=== PATIENT | male | born 1965 | race Caucasian/White ===

== ENCOUNTER 2022-05-13 05:47 | Emergency (ER) | payer BC ==
[~2022-05-13] VITALS: Ht 20.3 cm; Wt 138.6 kg
[2022-05-13] MEDS ORDERED: CITALOPRAM HBR10 MG PO (06:08)
[2022-05-13] MEDS ORDERED: LIPITOR 10M10 MG/TAB PO (06:09)
[2022-05-13] MEDS ORDERED: OZEMPIC0.25 MG/0. SQ (06:10)
[2022-05-13] MEDS ORDERED: GLUCOPHAGE PO (06:10)
[2022-05-13] MEDS ORDERED: FLOMAX0.4 MG PO (06:11)
[2022-05-13 06:38] LABS: BASO # 0.03 K/mm3 (0.02-0.10); EOS # 0.17 K/mm3 (0.04-0.40); EOS % 2.6 % (0.0-4.0); HEMATOCRIT 42.1 % (42.0-52.0); LYMPH# 1.36 K/mm3 (1.50-4.00); MEAN CELL VOLUME 88 fl (78-100); MEAN CORPUSCULAR HEMOGLOBIN 29 pg (27-31); MEAN CORPUSCULAR HGB CONC 33 g/dL (33-37); MEAN PLATELET VOLUME 9.4 fl (7.4-10.4); MONO # 0.49 K/mm3 (0.20-0.80); NEU # 4.38 K/mm3 (1.40-6.50); PLATELET COUNT 205 K/mm3 (130-400); WHITE BLOOD COUNT 6.5 K/mm3 (4.8-10.8)
[2022-05-13 06:52] LABS: POTASSIUM 3.8 mmol/L (3.5-5.1)
[2022-05-13 06:54] LABS: CALCIUM 9.5 mg/dL (8.3-10.5)
[2022-05-13 07:22] LABS: URINE APPEARANCE CLOUDY; URINE BILIRUBIN NEGATIVE (NEGATIVE); URINE BLOOD 250 ery/uL (NEGATIVE); URINE COLOR YELLOW; URINE GLUCOSE NEGATIVE (NEGATIVE); URINE KETONE NEGATIVE (NEGATIVE); URINE LEUKOCYTE ESTERASE TRACE (NEGATIVE); URINE NITRATE NEGATIVE (NEGATIVE); URINE PROTEIN(semi-quant) 1+ (NEGATIVE); URINE UROBILINOGEN NORMAL (NORMAL)
[2022-05-13] MEDS ORDERED: ZOFRAN ODT4 MG PO (08:04)
[2022-05-13] MEDS ORDERED: PERCOCET 325 MG1 TA2 PO (08:04)
[2022-05-13 08:18] VITALS: BP 127/78
== END 2022-05-13 08:22 | disposition home or self-care (01) ==
LOC: ED 05:47
PROVIDERS: Family Medicine
DX: N23 Unspecified renal colic (principal); E11.9 Type 2 diabetes mellitus without complications; E66.9 Obesity, unspecified; Z87.442 Personal history of urinary calculi; Z88.5 Allergy status to narcotic agent; Z28.310 Unvaccinated for COVID-19
CPT/HCPCS: J3010